=== PATIENT | female | born 1985 | race Caucasian/White ===

== ENCOUNTER 2021-02-13 20:12 | Emergency (ER) | payer OTHER, SELFPAY ==
[2021-02-13 20:28] VITALS: O2SAT 99
[2021-02-13 20:31] VITALS: BP 133/87; PULSE 88; RESP 16; TEMP 36.6; O2SAT 97; BMI 23.6
--- NOTE | 2021-02-13 20:40 | ED_ITS ---
HPI - General Adult General Chief complaint: General Medical Stated complaint: unresponsive Time Seen by Provider: 02/13/21 20:40 Source: patient Mode of arrival: ambulatory Limitations: no limitations History of Present Illness HPI narrative: Patient's stay of anxiety had an argument with her boyfriend took 2 of her gabapentin a half of Xanax to come down door to store and tried to sleep in the car denies suicidal ideation or homicidal feeling denies any significant depression no self-harm intent would like to go home at this time does not want to talk to any therapist as does not feel that she needs any help Related Data Allergies Allergy/AdvReac Type Severity Reaction Status Date / Time No Known Allergies Allergy Unverified 05/21/20 19:03 [No Known Allergies*] Review of Systems Review of Systems: Yes all other systems are reviewed and are negative [facility] Past Medical History Medical History Asthma Social History Social History Alcohol intake: never Use of substances other than those prescribed or required for medical reasons: Yes 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 Oriented X3. No acute distress. Eyes: PERRLA, No Nystagmus ENT: Pharynx normal. Oral Mucosa moist Neck: Normal inspection. Neck supple. CVS: Normal heart rate and rhythm. Pulses normal. Respiratory: No respiratory distress. Equal air entry bilateral, no wheezing/rales/rhonchi Abdomen: Soft and nontender. Bowel sounds are present, no mass palpable, no CVA tenderness Skin: Skin warm and dry. Normal skin color. Normal skin turgor. Extremities: No lower extremity edema. No calf tenderness Neuro: Oriented X 3. No motor deficit. No sensory deficit Psych: Anxious crying denies any suicidal ideation denies depression judgment fair Medical Decision Making MDM Narrative Medical decision making narrative: Patient feels safe to go home but eloped from the ER without discharge papers Discharge Plan Discharge Clinical Impression: Anxiety Patient Disposition: Elopement Discharge Date/Time: 02/13/21 21:49
== END 2021-02-13 21:49 | disposition left against medical advice (07) ==
PROVIDERS: Emergency Provider Emergency Medicine
DX: F41.9 Anxiety disorder, unspecified (principal)
CPT/HCPCS: 99282; 99285